=== PATIENT | male | born 1995 | race American Indian/Alaskan Native ===

== ENCOUNTER 2017-03-17 13:10 | Emergency (ER) | payer MEDICAID ==
[2017-03-17 13:18] VITALS: BP 133/92
[2017-03-17] MEDS ORDERED: Lidocaine 1% 30 ML SDV INJECT ONE (13:36)
[2017-03-17] MEDS ORDERED: Bacitracin Oint 1 GM U/D Packet TOP ONE (13:36)
--- NOTE | 2017-03-17 13:49 | EDM.PDOC ---
ED HPI GENERAL MEDICAL PROBLEM - General Chief Complaint: Laceration Stated Complaint: CUT LEFT WRIST Time Seen by Provider: 03/17/17 13:34 Source of Information: Reports: Patient History Limitations: Reports: No Limitations - History of Present Illness INITIAL COMMENTS - FREE TEXT/NARRATIVE: This 21 yo male patient reports to the ED with a laceration to his left wrist. The patient reports he cut his wrist on some sheet metal prior to coming to the ED. The patient reports he is up to date on his Tetanus. Onset: Today Duration: Minutes: Location: Reports: Upper Extremity, Left Quality: Reports: Ache Severity: Mild Improves with: Reports: None Worsens with: Reports: None Associated Symptoms: Reports: No Other Symptoms Left Wrist Pain Score (Numeric/FACES): 4 - Related Data Allergies Allergy/AdvReac Type Severity Reaction Status Date / Time cefaclor [From [facility]] Allergy Hives Verified 03/17/17 13:15 Home Meds: Home Meds . [No Known Home Meds] 03/17/17 [History] Past Medical History - Past Health History Medical/Surgical History: Denies Medical/Surgical History Other Musculoskeletal History: fx lelft leg, lawrence ankles feet and left 3 toes. - Past Surgical History HEENT Surgical History: Reports: Adenoidectomy, Myringotomy w Tube(s), Tonsillectomy Other HEENT Surgeries/Procedures: wisdom teeth removed. Social & Family History - Family History Family Medical History: Noncontributory - Tobacco Use Smoking Status *Q: Never Smoker Second Hand Smoke Exposure: No - Caffeine Use Caffeine Use: Reports: Soda - Alcohol Use Days Per Week of Alcohol Use: 0 - Recreational Drug Use Recreational Drug Use: No ED ROS GENERAL - Review of Systems Review Of Systems: ROS reveals no pertinent complaints other than HPI. ED EXAM, SKIN/RASH Exam: See Below Exam Limited By: No Limitations General Appearance: Alert, WD/WN, No Apparent Distress Eye Exam: Bilateral Eye: EOMI, Normal Inspection, PERRL Ears: Normal External Exam, Normal Canal, Hearing Grossly Normal, Normal TMs Nose: Normal Inspection, Normal Mucosa, No Blood Throat/Mouth: Normal Inspection, Normal Lips, Normal Teeth, Normal Gums, Normal Oropharynx, Normal Voice, No Airway Compromise Head: Atraumatic, Normocephalic Neck: Normal Inspection, Supple, Non-Tender, Full Range of Motion Respiratory/Chest: No Respiratory Distress, Lungs Clear, Normal Breath Sounds, No Accessory Muscle Use, Chest Non-Tender Cardiovascular: Normal Peripheral Pulses, Regular Rate, Rhythm, No Edema, No Gallop, No JVD, No Murmur, No Rub GI/Abdominal: Normal Bowel Sounds, Soft, Non-Tender, No Organomegaly, No Distention, No Abnormal Bruit, No Mass (Male) Exam: Deferred Rectal (Males) Exam: Deferred Extremities: Normal Range of Motion, Non-Tender, No Pedal Edema, Normal Capillary Refill Neurological: Alert, Oriented, Normal Cognition, Normal Gait, Normal Reflexes, No Motor/Sensory Deficits Psychiatric: Normal Affect, Normal Mood Skin: Warm, Dry, Normal Color, No Rash, Wound/Incision Location, Skin: Upper Extremity, Left Characteristics: Linear Associated features: Warmth, Tenderness, Wwelling Lymphatic: No Adenopathy ED SKIN PROCEDURES - Laceration/Wound Repair Left Wrist Lac/Wound length In cm: 1.5 Appearance: Subcutaneous Distal NVT: Neuro & Vascular Intact Anesthetic Type: Local Local Anesthesia - Lidocaine (Xylocaine): 1% Plain Local Anesthetic Volume: 2cc Skin Prep: Chlorhexidine (Hibiciens), Saline Exploration/Debridement/Repair: Wound Explored, in a Bloodless Field, Explored to Base, No Foreign Material Found Closed with: Sutures Suture Size: 4-0 # of Sutures: 4 Suture Type: Prolene, Interrupted, Simple Drain Placement: No Sterile Dressing Applied: Nurse Tetanus Status Addressed: Yes Complications: No Course - Vital Signs Last Recorded V/S: Last Vital Signs Temp 36.6 C 03/17/17 13:17 Pulse 82 03/17/17 13:17 Resp 20 03/17/17 13:17 BP 133/92 H 03/17/17 13:17 Pulse Ox 98 03/17/17 13:17 - Orders/Labs/Meds Orders: Active Orders 24 hr Category Date Time Status Bacitracin [Bacitracin Oint 1 GM] Med 03/17/17 13:36 Once 1 dose TOP ONETIME ONE Lidocaine 1% [Xylocaine-MPF 1%] Med 03/17/17 13:36 Once 30 ml INJECT ONETIME ONE Departure - Departure Time of Disposition: 13:53 Disposition: Home, Self-Care 01 Condition: Fair Clinical Impression: Laceration of left wrist Qualifiers: Encounter type: initial encounter Qualified Code(s): S61.512A - Laceration without foreign body of left wrist, initial encounter - Discharge Information Instructions: Laceration Care, Adult, [id number] Forms: ED Department Discharge Care Plan Goals: The patient was advised of the examination results during the visit. The wound margins were well approximated during the visit. The patient should keep the area clean and dry over the next 24 hours. The patient should have the sutures removed in 10-14 days. If the patient has any additional symptoms or concerns, the patient should follow-up with his primary care facility or return to the emergency department. - My Orders Last 24 Hours: My Active Orders 03/17/17 13:36 Bacitracin [Bacitracin Oint 1 GM] 1 dose TOP ONETIME ONE Lidocaine 1% [Xylocaine-MPF 1%] 30 ml INJECT ONETIME ONE - Assessment/Plan Last 24 Hours: My Active Orders 03/17/17 13:36 Bacitracin [Bacitracin Oint 1 GM] 1 dose TOP ONETIME ONE Lidocaine 1% [Xylocaine-MPF 1%] 30 ml INJECT ONETIME ONE
== END 2017-03-17 13:59 | disposition home or self-care (01) ==
LOC: DL.ED 13:10
DX: S61.512A Laceration without foreign body of left wrist, initial encounter (principal); W26.8XXA Contact with other sharp object(s), not elsewhere classified, initial encounter; Z88.1 Allergy status to other antibiotic agents
CPT/HCPCS: 12001; 99283

== ENCOUNTER 2017-05-09 17:33 | Emergency (ER) | payer MEDICAID ==
[2017-05-09 17:45] VITALS: BP 137/83
[2017-05-09] MEDS ORDERED: Lidocaine 1% 30 ML SDV INJECT ONE (18:04)
[2017-05-09] MEDS ORDERED: Cephalexin 500 MG Cap PO ONE (18:40)
--- NOTE | 2017-05-09 19:10 | EDM.PDOC ---
Scribed by Cassandra Renae 05/09/17 1908 for Saleem Flores MD ED HPI GENERAL MEDICAL PROBLEM - General Chief Complaint: Laceration Stated Complaint: CUT ON LEG, NEEDS STITCHES, [id number] Time Seen by Provider: 05/09/17 17:45 Source of Information: Reports: Patient, RN, RN Notes Reviewed History Limitations: Reports: No Limitations - History of Present Illness INITIAL COMMENTS - FREE TEXT/NARRATIVE: Patient cut his right lower leg on a motorcycle foot peg. Tetanus is up to date. Denies any other injury. Onset: Today Location: Reports: Lower Extremity, Right Quality: Reports: Ache Severity: Mild Improves with: Reports: None Worsens with: Reports: None Associated Symptoms: Reports: No Other Symptoms - Related Data Allergies Allergy/AdvReac Type Severity Reaction Status Date / Time cefaclor [From [facility]] Allergy Hives Verified 05/09/17 17:41 Home Meds: Home Meds . [No Known Home Meds] 03/17/17 [History] Past Medical History - Past Health History Medical/Surgical History: Denies Medical/Surgical History Other Musculoskeletal History: fx lelft leg, lawrence ankles feet and left 3 toes. - Past Surgical History HEENT Surgical History: Reports: Adenoidectomy, Myringotomy w Tube(s), Tonsillectomy Other HEENT Surgeries/Procedures: wisdom teeth removed. Social & Family History - Family History Family Medical History: Noncontributory - Tobacco Use Smoking Status *Q: Never Smoker Second Hand Smoke Exposure: No - Caffeine Use Caffeine Use: Reports: None - Alcohol Use Days Per Week of Alcohol Use: 0 - Recreational Drug Use Recreational Drug Use: No ED ROS GENERAL - Review of Systems Review Of Systems: ROS reveals no pertinent complaints other than HPI. ED EXAM, SKIN/RASH Exam: See Below Exam Limited By: No Limitations General Appearance: Alert, WD/WN, No Apparent Distress Head: Atraumatic, Normocephalic Respiratory/Chest: No Respiratory Distress Cardiovascular: Normal Peripheral Pulses Extremities: Normal Range of Motion, Normal Capillary Refill, Other (a 5cm jagged irregular vertical laceration at the mid shaft point of the right anterior lower extremity to the depth of subcutaneous fat. ) ED SKIN PROCEDURES - Laceration/Wound Repair Right Lower Anterior Leg Lac/Wound length In cm: 5 Appearance: Subcutaneous, Irregular Distal NVT: Neuro & Vascular Intact, No Tendon Injury Anesthetic Type: Local Local Anesthesia - Lidocaine (Xylocaine): 1% Plain Local Anesthetic Volume: Other (15cc) Skin Prep: Chlorhexidine (Hibiciens), Saline Saline Irrigation (cc's): 1,000 Exploration/Debridement/Repair: Wound Explored, In a Bloodless Field, Explored to Base, Minimal Debridement, Moderately Undermined, Foreign Material Removed Closed with: Sutures Suture Size: 2-0 # of Sutures: 11 Suture Type: Nylon, Interrupted, Running Sterile Dressing Applied: Nurse Tetanus Status Addressed: Yes Complications: No Course - Vital Signs Last Recorded V/S: Last Vital Signs Temp 36.6 C 05/09/17 17:42 Pulse 95 05/09/17 17:42 Resp 16 05/09/17 17:42 BP 137/83 05/09/17 17:42 Pulse Ox 99 05/09/17 17:42 - Orders/Labs/Meds Meds: Medications Discontinued Medications Generic Name Dose Route Start Last Admin Trade Name Chapis PRN Reason Stop Dose Admin Cephalexin 500 mg 05/09/17 18:40 05/09/17 18:43 Keflex PO 05/09/17 18:41 500 mg ONETIME ONE Administration Lidocaine HCl 30 ml 05/09/17 18:04 05/09/17 18:16 Xylocaine-Mpf 1% INJECT 05/09/17 18:05 30 ml ONETIME ONE Administration Departure - Departure Time of Disposition: 18:53 Disposition: Home, Self-Care 01 Condition: Good Clinical Impression: Laceration of right lower leg Qualifiers: Encounter type: initial encounter Qualified Code(s): S81.811A - Laceration without foreign body, right lower leg, initial encounter - Discharge Information Instructions: Laceration Care, Adult, [id number] Forms: ED Department Discharge Additional Instructions: RX: Cephalexin 500mg. Follow up in clinic in 10-12 days for suture removal. I have read and agree with the documentation that has been completed regarding this visit. By signing this record, I attest that the documentation was completed in my physical presence and is an accurate record of the encounter.
== END 2017-05-09 19:06 | disposition home or self-care (01) ==
LOC: DL.ED 17:33
DX: S81.811A Laceration without foreign body, right lower leg, initial encounter (principal); Z96.22 Myringotomy tube(s) status; Z98.890 Other specified postprocedural states; Z88.1 Allergy status to other antibiotic agents; W45.8XXA Other foreign body or object entering through skin, initial encounter
CPT/HCPCS: 12002; 99283; A9270